=== PATIENT | female | born 1995 | race Hispanic/Latino ===

== ENCOUNTER 2022-10-18 12:24 | Emergency (ER) | payer OTHER ==
[~2022-10-18] VITALS: Ht 170.2 cm; Wt 115.2 kg
[2022-10-18 16:03] VITALS: BP 120/74; PULSE 61; RESP 16; O2SAT 99
== END 2022-10-18 16:06 | disposition home or self-care (01) ==
LOC: EDH 12:24
DX: S69.81XA Other specified injuries of right wrist, hand and finger(s), initial encounter (principal); Z98.890 Other specified postprocedural states; X58.XXXA Exposure to other specified factors, initial encounter; Y93.89 Activity, other specified; Y92.89 Other specified places as the place of occurrence of the external cause; Y99.8 Other external cause status
CPT/HCPCS: 99282